=== PATIENT | female | born 1955 | race Native Hawaiian/Other Pacific Islander ===

== ENCOUNTER 2022-10-05 08:19 | Outpatient (CLI) | payer BC | END 2022-10-05 19:16 | disposition home or self-care (01) | LOC: MRI 08:19 | PROVIDERS: ATTEND Orthopaedic Surgery Adult Reconstructive Orthopaedic Surgery | DX: M54.59 Other low back pain (principal); M51.36 Other intervertebral disc degeneration, lumbar region; M54.16 Radiculopathy, lumbar region; M70.62 Trochanteric bursitis, left hip ==

== ENCOUNTER 2022-12-08 10:21 | Outpatient (CLI) | payer BC | END 2022-12-08 19:20 | disposition home or self-care (01) | LOC: RAD 10:21 | PROVIDERS: ATTEND Nurse Practitioner | DX: Z01.818 Encounter for other preprocedural examination (principal) ==

== ENCOUNTER 2023-05-24 13:01 | Outpatient (CLI) | payer OTHER | END 2023-05-24 19:05 | disposition home or self-care (01) | LOC: RAD 13:01 | PROVIDERS: ATTEND Nurse Practitioner | DX: M25.552 Pain in left hip (principal) ==

== ENCOUNTER 2023-09-03 12:17 | Outpatient (CLI) | payer OTHER | END 2023-09-03 19:42 | disposition home or self-care (01) | LOC: RAD 12:17 | PROVIDERS: ATTEND Orthopaedic Surgery | DX: M16.12 Unilateral primary osteoarthritis, left hip (principal) ==

== ENCOUNTER 2023-09-18 11:44 | Emergency (ER) | payer OTHER ==
[~2023-09-18] VITALS: Ht 162.6 cm; Wt 104.3 kg
[2023-09-18 12:21] LABS: PLATELET COUNT 532 K/uL (152-353)
[2023-09-18 12:23] LABS: POTASSIUM 3.7 mmol/L (3.6-5.2)
[2023-09-18] MEDS ORDERED: [UNRECOGNIZED DRUG - OTHER] INJ ONE (12:33)
[2023-09-18] MEDS ORDERED: SODIUM CHLORIDE 0.9% 1,000 ML IV ONE ×2 (12:36→12:52)
[2023-09-18] MEDS ORDERED: PIPERACILLIN SOD TAZOBACTAM SO IV ONE (12:45)
[2023-09-18] MEDS ORDERED: SODIUM CHLORIDE 0.9% 100 ML IV ONE (12:45)
[2023-09-18] MEDS ORDERED: Ondansetron HCl 4 MG INJ INJ ONE (14:37)
[2023-09-18] MEDS ORDERED: MORPHINE SULFATE 2 MG ML IV ONE (14:37)
[2023-09-18] MEDS ORDERED: MORPHINE SULFATE 2 MG ML ONE (14:50)
[2023-09-18 16:00] VITALS: BP 145/70; TEMP 98.4
== END 2023-09-18 16:00 | disposition short-term general hospital (02) ==
LOC: ED 11:51
PROVIDERS: Family Medicine
DX: R41.82 Altered mental status, unspecified (principal); R10.9 Unspecified abdominal pain; K63.1 Perforation of intestine (nontraumatic); D72.828 Other elevated white blood cell count; A41.9 Sepsis, unspecified organism; I10 Essential (primary) hypertension; E11.65 Type 2 diabetes mellitus with hyperglycemia; F03.90 Unspecified dementia, unspecified severity, without behavioral disturbance, psychotic disturbance, mood disturbance, and anxiety
CPT/HCPCS: 80053; 80307; 81002; 82550; 83605; 84484; 85007; 85027; 85610; 85730; 87040; 93005; 96361; 96365; 96375; 99285; J2270; J2405; J2543; Q9963